=== PATIENT | female | born 1985 ===

== ENCOUNTER 2020-02-08 09:53 | Outpatient (CLI) | payer BC, OTHER ==
[2020-02-08 17:57] LABS: SARS-CoV-2 MS2 Positive; SARS-CoV-2 N Gene Negative; SARS-CoV-2 S Gene Negative; SARS-CoV-2 by NAA Not Detected (NotDetected); SARS-CoV-2 orf1ab Negative
== END 2020-02-08 09:54 | disposition home or self-care (01) ==
LOC: LABBT 09:53
PROVIDERS: ATTEND Obstetrics & Gynecology
DX: Z20.828 Contact with and (suspected) exposure to other viral communicable diseases (principal)
CPT/HCPCS: 87635; U0003

== ENCOUNTER 2020-02-13 10:02 | Inpatient (IN) | payer BC, OTHER ==
--- NOTE | 2020-02-13 00:55 | PDOC.LDHP ---
Labor and Delivery H&P HPI: 34 y/o at 39 ans 2/7 weeks for primary for GDM, suspected CPD, LGA Fetus. Current gestational age (weeks): 39 Due date: 02/18/20 Grav: 1 Para: 0 Current complications: gestational diabetes Abnormal US findings: Yes (LGA Fetus) Current medications: pre- vitamins Social history: none - Physical Exam Vital signs reviewed and normal: yes General: NAD, resting Heart: RRR Lungs: CTAB Abdomen: gravid Extremeties: no edema FHT: category 1 - Assessment L&D Assessment: scheduled primary section - Plan Plan: admit to L&D, to OR for section
[~2020-02-13 10:02] MED LIST: CEFAZOLIN 2 GM in Premix Bag 1 BAG IVPB SCH; Ondansetron PF 4 MG/2 ML Vial IVP PRN; Promethazine HCl 25 MG/ML VIAL IM PRN; hydrALAZINE 20 MG/ML VIAL SLOW IVP PRN
[2020-02-13] MEDS ORDERED: Famotidine/PF 20 mg/2ml Vial ONE (10:39)
[2020-02-13] MEDS ORDERED: Morphine PF 10 MG/10 ML VIAL ONE (10:44)
[2020-02-13] MEDS ORDERED: Oxytocin 10 UNITS/ML VIAL ONE ×2 (10:44→12:51)
[2020-02-13] MEDS: Lactated Ringer's 1,000 ML IV SCH ×2 (11:00→12:00)
[2020-02-13 11:21] LABS: Hemoglobin 10.4 g/dL (12.0-16.0); Mean Corpuscular HGB CONC 31.9 g/dL (32.0-36.0); Mean Corpuscular Hemoglobin 27.4 pg (27.0-31.0); Platelet Count 181 thou/uL (130-400); RBC Distribution Width 13.2 % (11.5-14.5); White Blood Cell (WBC) Count 11.6 thou/uL (4.8-10.8)
[2020-02-13 11:32] VITALS: BMI 41.1
[2020-02-13] MEDS ORDERED: Bicitra 30 ML UDCUP PO SCH (12:00)
[2020-02-13 12:04] LABS: Syphilis Antibody Nonreactive (Nonreactive); Syphilis Antibody Index 0.09 S/CO (<1.00 Non-Reactive)
[2020-02-13 12:05] LABS: HBSAg Index 0.25 S/CO (0-0.99); Hep B Surf Ag Non-Reactive S/CO (NonReactive)
[2020-02-13] MEDS ORDERED: Promethazine HCl 25 MG SUPP PR PRN (12:53)
[2020-02-13] MEDS ORDERED: Naloxone HCl 0.4 mg/ml Vial IVP PRN ×2 (12:53)
[2020-02-13] MEDS ORDERED: Meperidine HCl/PF 25 MG/ML VIAL SLOW IVP PRN (12:53)
[2020-02-13] MEDS ORDERED: Ondansetron PF 4 MG/2 ML Vial IVP PRN ×2 (12:53→13:45)
[2020-02-13] MEDS ORDERED: Naloxone HCl 0.4 mg/ml Vial IV PRN (12:53)
[2020-02-13] MEDS ORDERED: HYDROmorphone 2 MG/ML VIAL SLOW IVP PRN (12:53)
[2020-02-13] MEDS ORDERED: L&D-Morphine 4 MG/ML VIAL SLOW IVP PRN (12:53)
[2020-02-13] MEDS ORDERED: Ondansetron HCl/PF 4 MG/2 ML Vial IVP PRN (12:53)
[2020-02-13] MEDS ORDERED: Promethazine HCl 25 MG/ML VIAL IM PRN (12:53)
[2020-02-13] MEDS ORDERED: diphenhydrAMINE 50 MG/ML VIAL IVP PRN (12:53)
[2020-02-13] MEDS ORDERED: Communication Order-Pharmacy FS SCH (13:00)
[2020-02-13] MEDS ORDERED: Lanolin Ointment 7 GM TUBE TOP PRN (13:45)
[2020-02-13] MEDS ORDERED: Bisacodyl 10 MG SUPP PR PRN (13:45)
[2020-02-13] MEDS ORDERED: Varicella virus, LIVE 0.5 ML VIAL SC ONE (13:45)
[2020-02-13] MEDS ORDERED: diphenhydrAMINE 25 MG CAP PO PRN (13:45)
[2020-02-13] MEDS ORDERED: Adacel (T-DAP) 0.5 ML SYRINGE IM ONE (13:45)
[2020-02-13] MEDS ORDERED: hydrALAZINE 20 MG/ML VIAL SLOW IVP PRN (13:45)
[2020-02-13] MEDS ORDERED: Measles/Mumps/Rubella 10 MCG/0.5 ML VIAL SC ONE (13:45)
[2020-02-13] MEDS ORDERED: Acetaminophen 325 MG TAB PO PRN (13:45)
[2020-02-13] MEDS ORDERED: NS / Oxytocin 40 units/1000ml 1,000 ML ONE (13:49)
[2020-02-13] MEDS ORDERED: hydrALAZINE 20 MG/ML VIAL ONE (14:46)
[2020-02-13] MEDS ORDERED: Naloxone HCl 0.4 mg/ml Vial ONE (16:28)
[2020-02-13] MEDS: Simethicone Chewable 80 MG TAB PO PRN (21:47)
[2020-02-13] MEDS: Ketorolac Tromethamine 30 MG/ML VIAL IVP PRN (21:47)
[2020-02-14] MEDS: Ketorolac Tromethamine 30 MG/ML VIAL IVP PRN (04:56)
[2020-02-14] MEDS: Simethicone Chewable 80 MG TAB PO PRN (04:56)
[2020-02-14 07:59] LABS: Hemoglobin 8.5 g/dL (12.0-16.0); Mean Corpuscular HGB CONC 33.1 g/dL (32.0-36.0); Mean Corpuscular Hemoglobin 28.3 pg (27.0-31.0); Mean Corpuscular Volume 85.3 fL (78.0-98.0); Mean Platelet Volume 9.7 fL (7.4-10.4); Platelet Count 150 thou/uL (130-400); RBC Distribution Width 13.3 % (11.5-14.5); Red Blood Cell (RBC) Count 2.99 mill/uL (4.20-5.40); White Blood Cell (WBC) Count 12.3 thou/uL (4.8-10.8)
[2020-02-14] MEDS: Prenatal Vitamin 1 TAB PO SCH (08:28)
[2020-02-14] MEDS: HYDROcodone/Acetaminophen 5/325 mg Tablet PO PRN ×3 (08:28→21:32)
[2020-02-14] MEDS ORDERED: FLU VACC QS2020-21(6MOS UP)/PF 60 MCG/0.5 ML SYRINGE IM ONE (11:45)
[2020-02-14] MEDS: Ibuprofen 800 MG TAB PO SCH (16:06)
--- NOTE | 2020-02-14 18:04 | OP ---
DATE OF PROCEDURE: 02/13/2020 TIME OF SURGERY: 12:40 Central Standard Time. PREOPERATIVE DIAGNOSES: Intrauterine at 39 weeks and 2 days with a high-risk , complicated by gestational diabetes as well as cephalopelvic disproportion. POSTOPERATIVE DIAGNOSES: Intrauterine at 39 weeks and 2 days with a high-risk , complicated by gestational diabetes as well as cephalopelvic disproportion. PROCEDURE PERFORMED: Primary low-transverse section for cephalopelvic disproportion. FINDINGS: Viable male infant, weighing 4390 g or 9 pounds 11 ounces. Apgars of 8 and 9. QUANTITATIVE BLOOD LOSS: 445 mL. COMPLICATIONS: None. DETAILS OF THE PROCEDURE: After obtaining consent, the patient was taken back to the operating room where her regional anesthesia was found to be adequate. The patient was placed in the dorsal supine position with leftward tilt. The skin was tested for adequate anesthesia and a scalpel was then used to make a Pfannenstiel incision which was carried down to the underlying rectus fascia. The fascia was incised in the midline and the fascial incision extended in both lateral directions. 2 Rhonda clamps were placed at the superior aspect of the fascia and the rectus muscles were dissected away. Similarly, 2 Rhonda clamps were placed at the inferior aspect of the incision and rectus muscles dissected away. The rectus muscles were then in the midline and the peritoneum identified and entered bluntly with the hemostat. The peritoneal incision was then extended superiorly and inferiorly. A bladder blade was then placed within the peritoneal cavity and a bladder flap was made with Metzenbaum scissors and pickups with teeth. The bladder blade was replaced. A clean scalpel was used to make a uterine incision. The baby was then delivered with gentle fundal pressure without difficulty. The baby's mouth and nose were bulb suctioned and the cord clamped and cut. The baby was then handed to waiting attendants. Cord blood and cord gases were obtained. The placenta was manually extracted. The uterus exteriorized, cleared of all clots and debris, and repaired with #1 chromic suture in a running, locked fashion. Hemostasis at the uterine wall was excellent. The bladder flap was repaired with 2-0 Monocryl in a running fashion. The tubes and ovaries were inspected and appeared normal. The posterior cul-de-sac was blotted dry and the uterus was replaced within the abdomen. Again, the uterus was firm, and hemostasis was excellent at the uterine repair. Peritoneum was closed with 2-0 chromic suture in a running fashion. Fascia was reapproximated with 0 Vicryl, using 2 running sutures tied in the midline. The subcutaneous tissue was irrigated. Hemostasis was assured and the skin closed with 3-0 Monocryl and Dermabond adhesive. The patient was then transferred to the ambulatory bed and taken to recovery in stable condition. Job ID: [id number]
[2020-02-15] MEDS: Ibuprofen 800 MG TAB PO SCH ×3 (00:33→14:02)
[2020-02-15] MEDS: HYDROcodone/Acetaminophen 5/325 mg Tablet PO PRN ×3 (06:09→14:09)
[2020-02-15] MEDS: Prenatal Vitamin 1 TAB PO SCH (07:42)
[2020-02-15 09:17] VITALS: TEMP 98.1
--- NOTE | 2020-02-15 09:52 | PDOC.PP ---
Post Progress Note Post Day #: 1 PO intake tolerated: yes Flatus: yes Ambulation: yes Vital Signs (12 hours) Temp Pulse Resp BP Pulse Ox 02/15/20 07:30 98.1 F 72 20 155/90 H 97 02/15/20 05:30 98.0 F 73 18 125/71 Weight Weight 240 lb - Physical Examination General: NAD Cardiovascular: no m/r/g, RRR Respiratory: clear to auscultation bilaterally, non-labored breathing Abdominal: + bowel sounds, lochia, no distention Extremities: negative homans (B) Skin: CS incision dry & intact, no rash Neurological: no gross focal deficits Psychiatric: A&Ox3, normal affect Result Diagrams: 02/14/20 07:50 Additional Labs: Post Labs Hep Bs Antigen Non-Reactive S/CO (NonReactive) 02/13/20 11:08 Blood Type A POSITIVE 02/13/20 11:12
[2020-02-15 11:52] VITALS: BP 135/80
== END 2020-02-15 14:30 | disposition home or self-care (01) | DRG 788 ==
LOC: L&D 10:02 → 3SW 16:37
PROVIDERS: ADMIT Obstetrics & Gynecology; ATTEND Obstetrics & Gynecology
PROC: 10D00Z1 Extraction of Products of Conception, Low, Open Approach (ICD-10-PCS; principal; 2020-02-13)
DX: O33.5XX0 Maternal care for disproportion due to unusually large fetus, not applicable or unspecified (principal); O36.63X0 Maternal care for excessive fetal growth, third trimester, not applicable or unspecified; O24.429 Gestational diabetes mellitus in childbirth, unspecified control; Z3A.39 39 weeks gestation of pregnancy; Z37.0 Single live birth
CPT/HCPCS: 36415; 51702; 85027; 86780; 86850; 86900; 86901; 87340; 90715; J0360; J0690; J1885; J2270; J2310; J2405; J2550; S0028